=== PATIENT | female | born 1955 | race African-American/Black ===

== ENCOUNTER 2022-06-12 04:50 | Inpatient (IN) | payer MEDICARE, OTHER ==
[~2022-06-12] VITALS: Ht 167.6 cm; Wt 117.9 kg
[2022-06-12] MEDS ORDERED: ASPIRIN 81MG TABLET PO ONE (05:45)
[2022-06-12] MEDS ORDERED: NITROGLYCERIN 0.4MG TABLET SL SL PRN (05:45)
[2022-06-12 06:30] LABS: BASOPHILS % 0.6 % (0.0-2.0); HEMATOCRIT. 33.5 % (36.0-48.0); HEMOGLOBIN. 10.8 g/dL (12.0-16.0); LYMPHOCYTES % 45.4 % (20.0-50.0); MEAN CORPUSCULAR HEMOGLOBIN 27.6 pg (28.0-32.0); MEAN CORPUSCULAR VOLUME 85.5 fL (81.0-99.0); MONOCYTES % 6.4 % (2.0-8.0); NEUTROPHILS % 45.6 % (40.0-76.0); PLATELET 288 x1000/uL (130-400); RED BLOOD CELL COUNT 3.92 mill/uL (4.2-5.4); RED CELL DISTRIBUTION WIDTH 16.2 % (11.6-14.6)
[2022-06-12 06:34] LABS: CHLORIDE 101 mEq/L (98-107)
[2022-06-12] MEDS ORDERED: HYDROCODONE/ACETAMINOPHEN 5/325MG TABLET PO ONE (06:45)
[2022-06-12] MEDS ORDERED: ENOXAPARIN 120MG/0.8ML SYR SUBCUT ONE (08:45)
[2022-06-12] MEDS ORDERED: ONDANSETRON HCL 4MG/2ML INJ IV PRN (11:15)
[2022-06-12] MEDS ORDERED: ACETAMINOPHEN 325MG TABLET PO PRN (11:15)
[2022-06-12] MEDS ORDERED: DEXTROSE 50% WATER 50ML SYRINGE IV PRN (11:15)
[2022-06-12] MEDS: FUROSEMIDE 40MG/4ML VIAL IVP SCH ×2 (11:39→18:04)
[2022-06-12] MEDS: AMLODIPINE 10MG TABLET PO SCH (11:39)
[2022-06-12] MEDS: BLOOD SUGAR DIAGNOSTIC STRIP TEST SCH ×3 (11:39→20:48)
[2022-06-12] MEDS: POTASSIUM CHLORIDE 20MEQ TABLET SR PO SCH (11:39)
[2022-06-12] MEDS: INSULIN LISPRO 100 UNITS/ML SUBCUT SCH ×3 (11:41→20:50)
[2022-06-12] MEDS ORDERED: LORAZEPAM 1MG TABLET PO PRN (12:30)
[2022-06-12 13:00] VITALS: BP 158/71
[2022-06-12] MEDS: PANTOPRAZOLE SODIUM 40 MG/VIAL IV SCH (13:41)
[2022-06-12 16:00] VITALS: BP 154/88
[2022-06-12] MEDS ORDERED: INFLUENZA VACCINE 05/PF 0.5 ML SYRINGE IM ONE (16:15)
[2022-06-12 18:15] LABS: *AMPHETAMINES SCREEN URINE NEGATIVE (NEGATIVE); *BARBITURATES SCREEN URINE NEGATIVE (NEGATIVE); *BENZODIAZEPINES SCREEN URINE PRESUMTIVE POSITIVE (NEGATIVE); *COCAINE SCREEN URINE NEGATIVE (NEGATIVE); CANNABINOID URINE SCREEN NEGATIVE (NEGATIVE); METHADONE URINE SCREEN NEGATIVE (NEGATIVE); OPIATES URINE SCREEN PRESUMTIVE POSITIVE (NEGATIVE); PHENCYCLIDINE URINE SCREEN NEGATIVE (NEGATIVE)
[2022-06-12] MEDS ORDERED: KETOROLAC 15MG/ML VIAL IV NR (19:00)
[2022-06-12] MEDS ORDERED: MAGNESIUM/ALUMINUM HYDROXIDE/SIMETHICONE 30ML UDC PO PRN (19:00)
[2022-06-12 20:00] VITALS: BP 160/91
[2022-06-12] MEDS ORDERED: NALOXONE HCL 0.4MG/ML VIAL IV PRN (20:00)
[2022-06-12] MEDS: HYDROCODONE/ACETAMINOPHEN 5/325MG TABLET PO PRN (20:07)
[2022-06-12] MEDS: METOPROLOL TARTRATE 25MG TABLET PO SCH (20:48)
[2022-06-12] MEDS ORDERED: ATORVASTATIN CALCIUM 20MG TABLET PO SCH (21:00)
[2022-06-12] MEDS ORDERED: FAMOTIDINE 20MG TABLET PO SCH ×2 (21:00)
[2022-06-12 21:57] LABS: CREATINE KINASE MB FRACTION 1.8 ng/mL (0.5-3.6)
[2022-06-13] VITALS: BP 130/67
[2022-06-13] MEDS: HYDROCODONE/ACETAMINOPHEN 5/325MG TABLET PO PRN ×2 (03:16→09:54)
[2022-06-13 04:00] VITALS: BP 148/54
[2022-06-13] MEDS: BLOOD SUGAR DIAGNOSTIC STRIP TEST SCH ×2 (06:17→12:38)
[2022-06-13] MEDS: INSULIN LISPRO 100 UNITS/ML SUBCUT SCH ×2 (06:17→12:46)
[2022-06-13 08:00] VITALS: BP 140/59
[2022-06-13] MEDS: FUROSEMIDE 40MG/4ML VIAL IVP SCH (08:50)
[2022-06-13] MEDS: POTASSIUM CHLORIDE 20MEQ TABLET SR PO SCH (08:50)
[2022-06-13] MEDS: PANTOPRAZOLE SODIUM 40 MG/VIAL IV SCH (08:50)
[2022-06-13] MEDS: METOPROLOL TARTRATE 25MG TABLET PO SCH (08:51)
[2022-06-13] MEDS: AMLODIPINE 10MG TABLET PO SCH (08:51)
[2022-06-13 12:00] VITALS: BP 122/65
[2022-06-13] MEDS ORDERED: FURO-151 MT (12:08)
[2022-06-13] MEDS ORDERED: ALBU18HF2 IH (12:08)
[2022-06-13 12:17] LABS: CHLORIDE 101 mEq/L (98-107)
[2022-06-13 13:22] VITALS: BP 122/65
== END 2022-06-13 15:20 | disposition home or self-care (01) | DRG 194 ==
LOC: ER 04:50 → EDBEDREQ 08:01 → EDBEDREQTM 08:01 → MICUSO 08:47 → 8WST 13:10
PROVIDERS: ADMIT Internal Medicine; ATTEND Internal Medicine
DX: I11.0 Hypertensive heart disease with heart failure (principal); J96.00 Acute respiratory failure, unspecified whether with hypoxia or hypercapnia; E66.01 Morbid (severe) obesity due to excess calories; D64.9 Anemia, unspecified; E11.9 Type 2 diabetes mellitus without complications; F17.210 Nicotine dependence, cigarettes, uncomplicated; I50.41 Acute combined systolic (congestive) and diastolic (congestive) heart failure; I49.3 Ventricular premature depolarization; K80.20 Calculus of gallbladder without cholecystitis without obstruction; Z71.51 Drug abuse counseling and surveillance of drug abuser; Z68.41 Body mass index [BMI] 40.0-44.9, adult; Z83.3 Family history of diabetes mellitus
CPT/HCPCS: 36415; 71045; 76700; 80048; 80053; 80305; 82550; 82553; 82962; 83880; 84484; 85025; 87426; 93005; 93306; 99291; C1893; C9113; J1650; J1815; J1940